=== PATIENT | male | born 1985 | race African-American/Black ===

== ENCOUNTER 2020-11-08 10:59 | Emergency (ER) | payer BC, SELFPAY ==
--- NOTE | ~2020-11-08 | CT_ITS ---
EXAMINATION: CT SOFT TISSUE NECK WITH CONTRAST CLINICAL INFORMATION: Left neck swelling. COMPARISON: None TECHNIQUE: Following the intravenous administration of 85 mL of Omnipaque 350 contrast, helical imaging was performed in the axial plane with generation of coronal and sagittal reformatted images. This CT examination was performed using dose optimization techniques as appropriate, variously including the following: *Automated exposure control *Adjustment of mA and/or kV according to patient size (this includes techniques or standardized protocols for targeted exams where dose is matched to indication/reason for exam; i.e. extremities or head) *Use of iterative reconstruction technique DLP: 1362 mGy-cm FINDINGS: There are soft tissue inflammatory changes in the left submandibular triangle and around the left parotid tail with thickening of the platysma muscle. Trace amount of fluid tracks around the left submandibular gland which demonstrates mildly increased heterogeneous enhancement as compared to the right side. No discrete intraglandular lesion, drainable fluid collection, or obstructing sialolith is visible. The floor of the mouth appears normal. The palatine tonsils are symmetrically prominent with narrowing of the oropharyngeal airway. The laryngeal structures are normal. Multiple small cysts versus nodules visible within the thyroid gland. The imaged mediastinum is normal. The visualized portions of the lungs are clear. Mild lower cervical spondylosis and reversal of the normal lordotic curvature. The carotid sheath vasculature opacifies normally. The parotid glands otherwise appear normal. No bulky cervical adenopathy identified. The imaged axillae are normal. No periapical lucencies seen in the dentition. Small retention cyst in the left maxillary sinus. The imaged orbits are normal. The visualized portions of the brain demonstrate no acute abnormality. CT/CT soft tissue neck w con IMPRESSION: Imaging findings suspected to represent acute left-sided submandibular gland sialoadenitis with mild surrounding soft tissue inflammatory changes. No bulky cervical adenopathy. No sialolith or drainable fluid collection. Symmetric prominence of the palatine tonsils resulting in narrowing of the oropharyngeal airway. Multinodular thyroid gland without enlargement.
[2020-11-08 11:40] VITALS: BP 146/96; PULSE 85; RESP 18; TEMP 36.6; O2SAT 100; BMI 37.2
--- NOTE | 2020-11-08 12:54 | ED_ITS ---
HPI - General Adult General Chief complaint: General Medical Stated complaint: lump on neck Time Seen by Provider: 11/08/20 12:33 Source: patient Mode of arrival: ambulatory Limitations: no limitations History of Present Illness HPI narrative: Patient presents to the ED for left submandiublar neck swelling that began that he noticed this morning. Patient denies neck mass being painful. Patient states no fever, chills, or weight loss. pateint states father from stomach cancer. patient maybe possible night sweats Related Data Previous Rx's Medication Instructions Recorded amoxicillin 875 mg-potassium 1 tab PO Q12H 10 Days #20 tab 11/08/20 clavulanate 125 mg tablet (Augmentin) Allergies Allergy/AdvReac Type Severity Reaction Status Date / Time No Known Allergies Allergy Verified 11/08/20 12:39 Review of Systems Review of Systems: Yes all other systems are reviewed and are negative Constitutional: Constitutional: Reports as per HPI and Reports no additional constitutional complaints Eyes: Eyes: Reports as per HPI and Reports no additional eye complaints ENT: Reports system reviewed and no additional complaints, except as documented and Reports as per HPI Comments: left submandibular neck swelling Cardiovascular: Cardiovascular: Reports as per HPI and Reports no additional cardiovascular complaints Respiratory: Respiratory: Reports as per HPI and Reports no additional respiratory complaints Genitourinary: Genitourinary: Reports no additional male genitourinary complaints and Reports as per HPI Musculoskeletal: Musculoskeletal: Reports no additional musculoskeletal complaints and Reports as per HPI Neurologic: Reports system reviewed and no additional complaints, except as documented and Reports as per HPI Psychiatric: Psychiatric: Reports no additional psychiatric complaints and Reports as per HPI [facility], [facility] Past Medical History Medical History (Updated 11/09/20 @ 00:01 by Raeann Mercado) No known health problems No known health problems Social History Social History Advance Directives: No Advance Directives Information Provided: No Physical Exam Vital Signs: Vital Signs: Last Vital Signs Temp 98.1 F 11/08/20 14:00 Pulse 76 11/08/20 14:00 Resp 18 11/08/20 14:00 BP 140/80 H 11/08/20 14:00 Pulse Ox 99 11/08/20 14:00 Body Mass Index 37.2 Const: General: cooperative, healthy appearing, comfortable, no acute distress, well developed, alert and awake Orientation/consciousness: patient oriented x3 HENMT: Other: Positive for left submandibular neck swelling with palpable mass that is non-tender on palpation. Oral cavity negative for dental abscess, tongue swelling, uvual swelling, uvula devation, tongue swelling, drooling, or tonsillar mass/swelling Head: Yes normal to inspection, Yes No palpable skull fracture present, Yes normocephalic and Yes atraumatic Eyes: General: appearance normal, both eyes and all related structures Neck: Neck: Yes normal visual inspection and Yes full ROM Chest: Chest palpation & inspection: normal inspection of the chest and normal palpation of entire chest wall Resp: Effort & Inspection: normal respiratory effort and able to speak in complete sentences Auscultation: clear to auscultation bilaterally Cardio: Jugular venous distension: no JVD Heart sounds: S1 normal heart sound present and S2 normal heart sound present GI: Inspection: Yes normal to inspection and No abdominal wall ecchymosis Palpation (GI): Soft to palpation, not firm, nontender and no guarding : General: No CVA tenderness and Yes no CVA tenderness Back/Spine/Pelvis: Back: no CVA tenderness, No CVA tenderness and No back tenderness Skin: General skin exam: no rashes or lesions noted and elasticity normal Neuro: General: patient oriented x3, gait normal and CN's II-XI intact bilaterally Cranial nerves: Yes CN's II-XII intact bilaterally Extrem: General: Yes normal to inspection and Yes full ROM Course Course Course Narrative: Patient had labs ordered and sent for CT scan of neck. 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 Patient educated on neck abscess or airway compromise and necessity to wait for results, but patient wanted to sign against medical advice. Patient explained risks of . Reevaluation #2: Patient was called and informed of CT scan results of neck. Patient informed he had siladenitis and nodules of thryoids. Patient informed to follow up with PCP. Augmentin sent to [facility]. Medical Decision Making Lab Data Result diagrams: 11/08/20 12:51 11/08/20 12:51 Labs: Lab Results 11/08/20 11/08/20 Range/Units 12:51 12:51 WBC 7.2 (4.8-10.8) X10*3/uL RBC 5.54 (4.60-5.80) X10*6/uL Hgb 15.2 (14.0-18.0) g/dl Hct 48.1 (42-52) % MCV 86.8 (80-98) fL MCH 27.4 (27.0-33.0) pg MCHC 31.6 (31.0-36.0) g/dl RDW 13.6 (11.0-16.0) % Plt Count 203 (160-400) X10*3/uL MPV 11.4 (9.4-12.4) fL Immature Gran % (Auto) 0.4 (0.0-0.4) % Neut % (Auto) 53.2 (45-73) % Lymph % (Auto) 35.3 (20-40) % Rice % (Auto) 9.3 (2-11) % Eos % (Auto) 1.5 (0-4) % Baso % (Auto) 0.3 (0-2) % Lymph # (Auto) 2.5 (1.2-4.9) X10*3/uL Rice # (Auto) 0.7 (0.1-1.2) X10*3/uL Eos # (Auto) 0.1 (0.0-0.4) X10*3/uL Baso # (Auto) 0.0 (0.0-0.2) X10*3/uL Abs Immat Gran (auto) 0.03 (0.00-0.03) X10*3/uL Absolute Neuts (auto) 3.8 (2.0-8.3) X10*3/uL Absolute Nucleated RBC 0.000 (0.0-0.012) X10*3/uL Nucleated RBC % (auto) 0.0 (0.0-0.2) /100WBC Sodium 140 (135-145) mmol/L Potassium 4.3 (3.3-5.1) mmol/L Chloride 104 (96-108) mmol/L Carbon Dioxide 29 (22-29) mmol/L Anion Gap 11 L (12-20) BUN 10 (9-16) mg/dL Creatinine 0.92 (0.5-1.4) mg/dL Estim Creat Clear Calc 154.1 Estimated GFR > 60 Random Glucose 100 (60-115) mg/dL Calcium 9.8 (8.4-10.2) mg/dL Total Bilirubin 0.3 (0.0-1.0) mg/dL AST 27 (5-37) U/L ALT 54 H (0-40) U/L Alkaline Phosphatase 94 (39-117) U/L Total Protein 8.0 (6.5-8.0) g/dL Albumin 4.5 (3.5-5.0) g/dL Discharge Plan Discharge Clinical Impression: Neck swelling Patient Disposition: Left Against Medical Advice Instructions: Lymphadenopathy (ED) Additional Instructions: Return to the ED for any drooling, chest pain, shortness of breath, fever, chills, can not tolerate oralsolids/liquids or any other conerning symptoms. Follow up wiht PCP. Prescriptions: New amoxicillin-pot clavulanate [Augmentin] 875-125 mg tablet 1 tab PO Q12H 10 Days Qty: 20 RF: 0 Stand Alone Forms: Against Medical Advice Interventions: ED Discharge Assessment Last Done: 11/08/20 16:00 Discharge Date/Time: 11/08/20 16:02 Print Language: Spanish
[2020-11-08 12:55] LABS: MANUAL DIFF FLAG NO
[2020-11-08 12:58] LABS: Basophils Percent Auto 0.3 % (0-2); Eosinophils Absolute Auto 0.1 X10*3/uL (0.0-0.4); Eosinophils Percent Auto 1.5 % (0-4); Hematocrit 48.1 % (42-52); Hemoglobin 15.2 g/dl (14.0-18.0); Imm Gran Abs Auto 0.03 X10*3/uL (0.00-0.03); Imm Gran Pct Auto 0.4 % (0.0-0.4); Lymphocytes Absolute Auto 2.5 X10*3/uL (1.2-4.9); Lymphocytes Percent Auto 35.3 % (20-40); Mean Corpuscular HGB Conc 31.6 g/dl (31.0-36.0); Mean Corpuscular Hemoglobin 27.4 pg (27.0-33.0); Mean Corpuscular Volume 86.8 fL (80-98); Mean Platelet Volume 11.4 fL (9.4-12.4); Monocytes Absolute Auto 0.7 X10*3/uL (0.1-1.2); Monocytes Percent Auto 9.3 % (2-11); Neutrophils Absolute Auto 3.8 X10*3/uL (2.0-8.3); Neutrophils Percent Auto 53.2 % (45-73); Platelet Count 203 X10*3/uL (160-400); Red Blood Count 5.54 X10*6/uL (4.60-5.80); Red Cell Distribution Width 13.6 % (11.0-16.0); White Blood Count 7.2 X10*3/uL (4.8-10.8)
[2020-11-08 13:40] LABS: Alanine Aminotransferase 54 U/L (0-40); Albumin Level 4.5 g/dL (3.5-5.0); Alkaline Phosphatase 94 U/L (39-117); Anion Gap 11 (12-20); Aspartate Amino Transferase 27 U/L (5-37); Bilirubin Total 0.3 mg/dL (0.0-1.0); Blood Urea Nitrogen 10 mg/dL (9-16); Calcium 9.8 mg/dL (8.4-10.2); Carbon Dioxide 29 mmol/L (22-29); Chloride 104 mmol/L (96-108); Creatinine Clr Calc Pharmacy 154.1; Estimated Glomerular Filt Rate > 60; Glucose Random 100 mg/dL (60-115); Potassium 4.3 mmol/L (3.3-5.1); Sodium 140 mmol/L (135-145)
[2020-11-08 14:00] VITALS: BP 140/80; PULSE 76; RESP 18; TEMP 36.7; O2SAT 99
[2020-11-08] MEDS: iohexoL 350 MG/ML 100 ML INFUS..BTL 75 ML IV (14:57)
--- NOTE | 2020-11-08 15:59 | PC.NURSE ---
PT UNABLE TO WAIT FOR CT RESULTS. VIOLETTE ESPINOZA PA IN TO SPEAK WITH PATIENT. PT REMAINS AWAKE,ALERT AND ORIENTED X 3. SPEAKING IN FULL CLEAR SENTENCES. MANAGING SECRETIONS. NO ACUTE DISTRESS NOTED. NEUROS INTACT. PLAN IS FOR PT TO BE DC'D AMA AND VIOLETTE WILL CALL WITH CT RESULTS. PT AGREEABLE TO PLAN. 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
== END 2020-11-08 16:02 | disposition left against medical advice (07) ==
PROVIDERS: Physician Assistant; Emergency Provider Internal Medicine
DX: K11.20 Sialoadenitis, unspecified (principal); E04.2 Nontoxic multinodular goiter; R22.1 Localized swelling, mass and lump, neck
CPT/HCPCS: 36415; 70491; 80053; 85025; 99284; Q9967

== ENCOUNTER 2023-04-20 13:28 | Emergency (ER) | payer BC, SELFPAY ==
--- NOTE | ~2023-04-20 | XR_ITS ---
EXAMINATION: XR LUMBOSACRAL SPINE CLINICAL INFORMATION: Low back pain status post heavy lifting. COMPARISON: None available. TECHNIQUE: Three views of the lumbosacral spine. FINDINGS: There is normal lumbar lordosis. The vertebral heights and alignment is normal. There is no visible acute fracture, dislocation or lytic process. There is mild ventral spondylosis throughout lumbar spine. The paravertebral soft tissues are normal. XR/XR lumbar spine 2-3V IMPRESSION: No acute fracture or dislocation. Mild ventral spondylosis lower lumbar spine.
[2023-04-20 13:47] VITALS: BP 141/95; PULSE 94; RESP 20; TEMP 37.1; O2SAT 98; BMI 36.7
--- NOTE | 2023-04-20 13:47 | ED_ITS ---
HPI - General Adult General Chief complaint: Back Pain/Injury Stated complaint: back pain Time Seen by Provider: 04/20/23 15:09 Source: patient and RN notes reviewed Mode of arrival: ambulatory Limitations: no limitations History of Present Illness HPI narrative: This is a 37-year-old male, with no known medical problems, presenting to the emergency department with complaints of low back pain since last night. 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 He did not have a specific movement where he immediately felt pain however throughout the evening last night he noticed increased back pain. He states that when he woke up this morning, his pain was severe. He states that the pain is in his low back, denies any radiating pain. Denies any fevers, chills, chest pain, shortness breast, abdominal pain, nausea, vomiting or diarrhea. No saddle anesthesia. No urinary or bowel retention or incontinence. He states that he has a history of back pain, was previously seen by Physical therapy several years ago. No IVDU. No other complaints or concerns at this time. MD complaint: Back pain Onset (ago): day(s) Location: back Radiation: non-radiation Related Data Previous Rx's Medication Instructions Recorded amoxicillin 875 mg-potassium 1 tab PO Q12H 10 days #20 tabs 11/08/20 clavulanate 125 mg tablet (Augmentin) acetaminophen 500 mg tablet 1,000 mg (2 x 500 mg) PO Q6H PRN 04/20/23 (Tylenol Extra Strength) pain #30 tabs ibuprofen 600 mg tablet 600 mg PO Q6H PRN pain #30 tabs 04/20/23 lidocaine 5 % topical patch 1 patch topical DAILY #30 ea 04/20/23 (Lidoderm) methocarbamol 750 mg tablet 1,500 mg (2 x 750 mg) PO Q8H 72 04/20/23 hours #18 tabs Allergies Allergy/AdvReac Type Severity Reaction Status Date / Time No Known Allergies Allergy Verified 04/20/23 13:47 Review of Systems Review of Systems: Yes all other systems are reviewed and are negative Constitutional: Constitutional: Reports as per [facility] Past Medical History Medical History (Updated 01/28/24 @ 00:01 by Background Dazeke) No known health problems No known health problems Social History Social History Smoked in Last 30 Days: No Use of substances other than those prescribed or required for medical reasons: No Advance Directives: No Advance Directives Information Provided: No Physical Exam ED Vital Signs: Vital Signs - 24 hr 04/20/23 13:47 04/20/23 16:41 Temperature 98.8 F 97.9 F Pulse Rate 94 60 Respiratory Rate 20 18 Blood Pressure 141/95 H 164/107 H Pulse Oximetry 98 98 Oxygen Delivery Method Room Air Room Air BMI result Body Mass Index 36.7 Const General: cooperative, comfortable and no acute distress Orientation/consciousness: patient oriented x3 Limitations: no limitations HENMT Head: Yes normal to inspection, Yes normocephalic and Yes atraumatic Ears: hearing grossly normal bilaterally General nose exam: Normal external nose present Face and sinus: Yes normal facial exam Mouth: Normal oral and palatal mucosa present, oropharynx normal and moist mucous membranes Throat: Yes posterior oropharynx normal Eyes General: appearance normal, both eyes and all related structures Eyelids: Yes eyelids normal Conjunctivae: conjunctivae normal Sclerae: sclerae normal Pupils: Equal, round and reactive pupils present EOM: EOMs intact bilaterally Neck Neck: Yes normal visual inspection, Yes full ROM and Yes no lymphadenopathy Lymphatic: no lymphadenopathy noted Chest Chest palpation & inspection: normal inspection of the chest Resp Effort & Inspection: normal respiratory effort and able to speak in complete sentences Auscultation: clear to auscultation bilaterally, no crackles, no rales, no rhonchi and no wheezes Cardio Rate: regular rate Rhythm: regular rhythm Heart sounds: S1 normal heart sound present and S2 normal heart sound present GI Inspection: Yes normal to inspection Back/Spine/Pelvis Other: TTP overlying lumbar parapinous muscles with spasm, DTR 2+, strength 5/5 in LE. 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 pain exacerbated w/ positional changes. does not want to sit down d/t pain. denies OTC meds for pain. using heating pad at home w/o relief. Denies fever, chills, numbness/tingling/weakness of LEs, saddle anesthesia, bowel or bladder incontinence or retention. Denies IVDU. PE: no midline spinous tenderness, no step off deformity. TTP of lumbar paraspinal muscles. xrs ordered Full HPI, ROS and PE to be performed by the primary ED provider. Medications Administered Discontinued Medications Generic Name Dose Route Start Last Admin Trade Name Freq PRN Reason Stop Dose Admin Ketorolac Tromethamine 30 mg 04/20/23 16:21 04/20/23 16:42 Ketorolac Tromethamine 30 Mg/Ml Vial IM 04/20/23 16:22 30 mg ONCE ONE Administration Medical Decision Making Medical Decision Making MDM Narrative: 37-year-old male, with no known medical problems, presenting to the emergency department with complaints of low back pain since last night. This patient presents with back pain most consistent with lumbar strain. Differential diagnoses includes lumbago versus musculoskeletal spasm / strain versus sciatica. No back pain red flags on history or physical. Presentation not consistent with malignancy (lack of history of malignancy, lack of B symptoms), fracture (no trauma, no bony tenderness to palpation), cauda equina syndrome (no bowel or urinary incontinence/retention, no saddle anesthesia, no distal weakness), pyelonephritis (afebrile, no CVAT, no urinary symptoms). Xrays orderd in triage revealing no acute bony abnormality. Sxs likely MSK/spasm related. D/C on muscle relaxants, given return precautions. Pt stable for d/c Differential Diagnosis Differential Diagnoses: The differential diagnosis associated with the presentation includes see above Radiology Impression Discussion of test interpretation with radiology: I have reviewed the radiologist's reading. Radiologist Impression: EXAMINATION: XR LUMBOSACRAL SPINE CLINICAL INFORMATION: Low back pain status post heavy lifting. COMPARISON: None available. TECHNIQUE: Three views of the lumbosacral spine. FINDINGS: There is normal lumbar lordosis. The vertebral heights and alignment is normal. There is no visible acute fracture, dislocation or lytic process. There is mild ventral spondylosis throughout lumbar spine. The paravertebral soft tissues are normal. XR/XR lumbar spine 2-3V IMPRESSION: No acute fracture or dislocation. Mild ventral spondylosis lower lumbar spine. Dictated By: Sj Awan MD Discharge Plan Discharge Clinical Impression: Back pain Patient Disposition: Home, Self-Care Instructions: Back Pain (ED) Additional Instructions: You were seen in the emergency department for back pain. You likely have back pain due to muscle spasms. Please take prescribed medication as directed. Gentle stretching, massage, lidocaine patches can also help. You can apply heat or ice to the area. Do not apply heat or ice directly to the lidocaine patches. Take ibuprofen and/or Tylenol as needed for pain. Methocarbamol can help with muscle spasms in your back. Please be advised that this can cause drowsiness, do not drink alcohol or drive while taking this medication. Any new or worsening symptoms occur including but not limited to worsening pain, numbness and tingling into your groin, loss of bowel or bladder control, please return for re-evaluation. Prescriptions: New ibuprofen 600 mg tablet 600 mg PO Q6H PRN (Reason: pain) Qty: 30 0RF acetaminophen [Tylenol Extra Strength] 500 mg tablet 1,000 mg PO Q6H PRN (Reason: pain) Qty: 30 0RF methocarbamol 750 mg tablet 1,500 mg PO Q8H 3 Days Qty: 18 0RF lidocaine [Lidoderm] 5 % adhesive patch,medicated 1 patch topical DAILY Qty: 30 0RF Rx Instructions: leave on most painful area for up to 12 hrs No Action amoxicillin-pot clavulanate [Augmentin] 875-125 mg tablet 1 tab PO Q12H 10 Days Qty: 20 0RF Stand Alone Forms: Work/School Release Interventions: ED Discharge Assessment Last Done: 04/20/23 16:54 Discharge Date/Time: 04/20/23 16:45
[2023-04-20 16:41] VITALS: BP 164/107; PULSE 60; RESP 18; TEMP 36.6; O2SAT 98
[2023-04-20] MEDS: Ketorolac Tromethamine 30 MG/ML VIAL IM (16:42)
== END 2023-04-20 16:45 | disposition home or self-care (01) ==
PROVIDERS: Emergency Provider Emergency Medicine
DX: Z04.2 Encounter for examination and observation following work accident (principal); M54.50 Low back pain, unspecified
CPT/HCPCS: 72100; 96372; 99284; J1885

== ENCOUNTER 2024-04-08 07:51 | Inpatient (IN) | payer BC, SELFPAY ==
--- NOTE | ~2024-04-08 | US_ITS ---
EXAMINATION: US TRIPLEX LOWER EXTREMITY, RIGHT CLINICAL INFORMATION: Edema, right lower extremity. COMPARISON: None available. TECHNIQUE: Color-flow triplex imaging with spectral analysis and compression Doppler were performed on the right lower extremity. FINDINGS: Respiratory variation, normal compression and augmented flow are noted throughout the right lower extremity. The visualized common femoral vein, superficial femoral vein, profunda femoral vein, popliteal vein and midcalf peroneal and posterior tibial venous segments show no evidence of deep venous thrombosis. There is no Caruso's cyst. Number 3 cm prominent nodule, right inguinal region. Edema in the right upper thyroid without drainable fluid collection. US/US venous duplex LE RT IMPRESSION: No acute deep venous thrombosis involving the right lower extremity. Negative exam. 3 cm prominent lymph nodes, right inguinal.. Electronically signed by: James Hoover MD 04/08/2024 11:11 AM [facility]
[2024-04-08 07:53] VITALS: BP 173/106; PULSE 106; RESP 18; TEMP 37.2; O2SAT 98; BMI 30.2
--- NOTE | 2024-04-08 09:11 | ED.GENADULT ---
HPI - General Adult General Chief complaint: Extremity Problem Stated complaint: R Leg Pain No Injury Time Seen by Provider: 04/08/24 09:10 Source: patient Mode of arrival: ambulatory Limitations: no limitations History of Present Illness ED Provider: Nazia Andrews PA-C HPI narrative: 38 y/o male with no significant PMH presents to the ED with right leg pain, swelling, and redness. States he initially noted his right leg to be swollen, red, and inflamed 03/25/24 and he was seen at the [facility] ED, prescribed PO Keflex which he finished. However, he states the pain and swelling have worsened significantly and he is now having difficulty bearing weight on the affected leg. States pain/swelling began distally around the ankle and moved proximally to the entire lower extremity up to the groin area. Endorses fever/chills and nausea x1 day. Denies recent travel or sick contacts. Denies vomiting, chest pain, SOB, abdominal pain, diarrhea/constipation. Pain Consistency: constant Relieving factors: immobilization Exacerbating factors: movement Associated symptoms: denies other symptoms Related Data Previous Rx's ?Medication ?Instructions ?Recorded acetaminophen 500 mg tablet 1,000 mg (2 x 500 mg) PO Q6H PRN 04/20/23 (Tylenol Extra Strength) pain #30 tabs ibuprofen 600 mg tablet 600 mg PO Q6H PRN pain #30 tabs 04/20/23 Allergies Allergy/AdvReac Type Severity Reaction Status Date / Time No Known Allergies Allergy Verified 04/08/24 07:56 Review of Systems Constitutional: Constitutional: Reports no additional constitutional complaints, Reports chills, Reports fever(s) and Denies night sweats Eyes: Eyes: Reports no additional eye complaints, Denies blurry vision, Denies change in vision, Denies diplopia, Denies eye discharge, Denies loss of vision and Denies eye pain ENT: Denies dizziness Cardiovascular: Cardiovascular: Reports no additional cardiovascular complaints, Denies chest pain, Denies lightheadedness, Denies Loss of Consciousness and Denies dyspnea Respiratory: Respiratory: Reports no additional respiratory complaints and Denies dyspnea Gastrointestinal: Gastrointestinal: Reports no additional gastrointestinal complaints, Denies abdominal pain, Denies melena, Denies hematochezia, Denies change in bowel habits, Denies change in stool character, Reports nausea and Denies vomiting Genitourinary: Genitourinary: Reports no additional male genitourinary complaints, Denies hematuria, Denies oliguria, Denies difficulty urinating, Denies dysuria, Denies urinary frequency, Denies urinary hesitancy, Denies urinary incontinence and Denies urinary urgency Musculoskeletal: Musculoskeletal: Reports no additional musculoskeletal complaints, Reports abnormal gait (Difficulty ambulating due to pain in right lower leg), Denies numbness and Denies tingling Comments: right upper and lower leg swelling, pain, erythema Neurologic: Reports abnormal gait (Difficulty ambulating due to pain in right lower leg), Denies dizziness, Denies loss of vision, Denies numbness and Denies tingling Psychiatric: Psychiatric: Reports no additional psychiatric complaints Endocrine: Endocrine: Reports no additional endocrine complaints Hematologic/Lymphatic: Hematologic/Lymphatic: Reports no additional hematologic/lymphatic complaints Allergic/Immunologic: Allergic/Immunologic: Reports no additional allergic/immunologic complaints [facility] Past Medical History Attestation statement: The following information was validated with the patient. Source: old records reviewed and nursing notes reviewed Medical History No known health problems No known health problems Social History Social History Advance Directives: No Advance Directives Information Provided: Yes Do you have a plan to hurt others: No Plan Physical Exam ED Vital Signs: Vital Signs - 24 hr 04/08/24 07:53 Temperature 99.0 F Pulse Rate 106 H Respiratory Rate 18 Blood Pressure 173/106 H Pulse Oximetry 98 Oxygen Delivery Method Room Air BMI result Body Mass Index 30.2 Const General: cooperative, no acute distress, alert and awake Nutritional Appearance: well nourished Orientation/consciousness: patient oriented x3 Limitations: no limitations [facility] Head: Yes normal to inspection and Yes atraumatic Ears: hearing grossly normal bilaterally and external ears normal General nose exam: Normal external nose present, no nasal discharge noted and no epistaxis Face and sinus: Yes normal facial exam, No abrasion and No laceration Mouth: Normal oral and palatal mucosa present, no drooling and no muffled voice Eyes General: appearance normal, both eyes and all related structures Periorbital: periorbital findings normal Eyelids: Yes eyelids normal Conjunctivae: conjunctivae normal Pupils: Equal, round and reactive pupils present EOM: EOMs intact bilaterally Neck Neck: Yes normal visual inspection, Yes full ROM and Yes no lymphadenopathy Chest Chest palpation & inspection: normal inspection of the chest Resp Effort & Inspection: normal respiratory effort and able to speak in complete sentences GI Inspection: Yes normal to inspection Neuro General: patient oriented x3 and moves all extremities Cranial nerves: Yes Equal, round and reactive pupils present Cognition (Neuro): normal cognition Extrem Other: tenderness to palpation of the entire right upper and lower leg along the medial aspect firmness present in the right lower leg medially General: Yes full ROM and Yes capillary refill normal Right lower extremity: hip/thigh (Palpable cord on medial R thigh) and lower leg Details: erythema, tenderness, localized swelling, palpable cord and warmth Left lower extremity: normal to inspection Psych Appearance: grossly normal Mental Status: mental status grossly normal Affect: normal affect Attitude: cooperative Thought process: Normal thought process present Thought content: Normal thought content present Insight: Good insight present (Psych) Medications Administered Generic Name Dose Route Start Last Admin Trade Name Freq PRN Reason Stop Dose Admin Enoxaparin Sodium 40 mg 04/08/24 14:00 04/08/24 14:14 Enoxaparin Sodium 40 Mg/0.4 Ml Syringe SUBCUT 40 mg Q24H АННА Administration Doxycycline Hyclate 100 mg/ 250 mls @ 166.67 mls/hr 04/08/24 13:00 04/08/24 14:11 Sodium Chloride IV 166.67 mls/hr Q12H АННА Administration Discontinued Medications Generic Name Dose Route Start Last Admin Trade Name Freq PRN Reason Stop Dose Admin Ceftriaxone Sodium 1 gm 04/08/24 09:51 04/08/24 10:17 Ceftriaxone Sodium 1 Gm Vial IVPUSH 04/08/24 09:52 1 gm ONCE ONE Administration Morphine Sulfate 4 mg 04/08/24 09:51 04/08/24 10:18 Morphine Sulfate 4 Mg/Ml Cartridge IVPUSH 04/08/24 09:52 4 mg ONCE ONE Administration Protocol Ondansetron HCl 4 mg 04/08/24 09:51 04/08/24 10:17 Ondansetron Hcl 4 Mg/2 Ml Vial IVPUSH 04/08/24 09:52 4 mg ONCE ONE Administration Medical Decision Making Medical Decision Making MDM Narrative: Patient is a 38 year old assigned male at with no reported medical history presenting to the emergency department today with right lower extremity pain, swelling, and erythema. Patient's physical exam was as noted in the physical exam portion of this note. Patient's blood work showed a WBC count of 18.9 and ESR of 9.04. Patient's urine showed no acute process. Patient's right lower extremity US showed no acute DVT but did show a 3cm right inguinal lymph node. I explained my physical exam findings as well as all test results to the patient. I answered all questions asked by the patient. Patient's clinical presentation is not consistent with sepsis (@1205). Patient was given IV ceftriaxone. I spoke to the hospitalist team who agreed to admission. Patient verbalized agreement and understanding with this treatment plan and admisison. Differential Diagnosis Differential Diagnoses: The differential diagnosis associated with the presentation includes Cellulitis Lymphadenopathy Admission/Observation Consideration of admission/observation: Escalation of care including admission/observation considered Patient admitted as noted in the MDM Rationale portion of this note. Consult Healthcare Provider Management of the patient was discussed with: Hospitalist (agreed to admission as noted in the MDM Rationale portion of this note.) Lab Data [facility] Lab Attestation statement: I reviewed the patient's lab results. My interpretation of these results are in the MDM Rationale portion of this note. 04/08/24 09:07 04/08/24 09:07 Labs: Lab Results 04/08/24 04/08/24 Range/Units 09:07 10:13 WBC 18.9 H (4.8-10.8) X10*3/uL RBC 5.32 (4.60-5.80) X10*6/uL Hgb 14.6 (14.0-18.0) g/dl Hct 43.5 (42.0-52.0) % MCV 81.8 (80.0-98.0) fL MCH 27.4 (27.0-33.0) pg MCHC 33.6 (31.0-36.0) g/dl RDW 13.2 (11.0-16.0) % Plt Count 245 (160-400) X10*3/uL MPV 10.2 (9.4-12.4) fL Immature Gran % (Auto) Cancelled Neut % (Auto) Cancelled Lymph % (Auto) Cancelled Door % (Auto) Cancelled Eos % (Auto) Cancelled Baso % (Auto) Cancelled Lymph # (Auto) Cancelled Door # (Auto) Cancelled Eos # (Auto) Cancelled Baso # (Auto) Cancelled Abs Immat Gran (auto) Cancelled Absolute Neuts (auto) Cancelled Absolute Nucleated RBC 0.000 (0.0-0.012) X10*3/uL Nucleated RBC % (auto) 0.0 (0.0-0.2) /100WBC Neutrophils % (Manual) 69 (45-73) % Band Neutrophils % 1 L (3-5) % Lymphocytes % (Manual) 20 (20-40) % Monocytes % (Manual) 9 (2-11) % Eosinophils % (Manual) 1 (0-4) % Abs Neuts (Manual) 13.2 H (2.0-8.3) X10*3/uL Lymphocytes # (Manual) 3.8 (1.2-4.9) X10*3/uL Monocytes # (Manual) 1.7 H (0.1-1.2) X10*3/uL Eosinophils # (Manual) 0.2 (0.0-0.4) X10*3/uL Platelet Estimate NORMAL (NORMAL) Plt Morphology Comment NORMAL RBC Morphology NORMAL ESR 14 (0-15) MM/HR Sodium 138 (135-145) mmol/L Potassium 3.7 (3.3-5.1) mmol/L Chloride 107 (96-108) mmol/L Carbon Dioxide 25 (22-29) mmol/L Anion Gap 10 L (12-20) BUN 11 (9-16) mg/dL Creatinine 0.88 (0.5-1.4) mg/dL Estim Creat Clear Calc 145.1 Estimated GFR > 60 Random Glucose 96 (60-115) mg/dL Lactic Acid 0.7 (0.5-2.0) mmol/L Calcium 9.1 D (8.4-10.2) mg/dL Total Bilirubin 0.5 (0.0-1.0) mg/dL AST 24 (5-37) U/L ALT 33 (0-40) U/L Alkaline Phosphatase 95 (39-117) U/L C-Reactive Protein 9.04 H (< or = 0.50) mg/dL Total Protein 7.9 (6.5-8.0) g/dL Albumin 4.3 (3.5-5.0) g/dL Independent Interpretation I performed an independent interpretation of an: Ultrasound Interpretation: My interpretation is in agreement with the radiologist's impression of this imaging study. EXAMINATION: US TRIPLEX LOWER EXTREMITY, RIGHT CLINICAL INFORMATION: Edema, right lower extremity. COMPARISON: None available. TECHNIQUE: Color-flow triplex imaging with spectral analysis and compression Doppler were performed on the right lower extremity. FINDINGS: Respiratory variation, normal compression and augmented flow are noted throughout the right lower extremity. The visualized common femoral vein, superficial femoral vein, profunda femoral vein, popliteal vein and midcalf peroneal and posterior tibial venous segments show no evidence of deep venous thrombosis. There is no Caruso's cyst. Number 3 cm prominent nodule, right inguinal region. Edema in the right upper thyroid without drainable fluid collection. US/US venous duplex LE RT IMPRESSION: No acute deep venous thrombosis involving the right lower extremity. Negative exam. 3 cm prominent lymph nodes, right inguinal.. Electronically signed by: James Hoover MD 04/08/2024 11:11 AM [facility] [place] Dictated By: James Gil MD Signed By: Electronically signed by James Lakhani MD 04/08/24 1111 Radiology Impression Discussion of test interpretation with radiology: I have reviewed the radiologist's reading. Critical Care Time Critical Care Time Critical Care Time: Yes Total Critical Care Time: 34 Attestation: I spent 34 minutes of Critical Care Time with this patient. This does not include time spent on separately reported billable procedures. Discharge Plan Discharge Clinical Impression: Cellulitis of right lower leg Patient Disposition: Admitted As Inpatient
[2024-04-08 09:16] LABS: Hematocrit 43.5 % (42.0-52.0); Hemoglobin 14.6 g/dl (14.0-18.0); Mean Corpuscular HGB Conc 33.6 g/dl (31.0-36.0); Mean Corpuscular Hemoglobin 27.4 pg (27.0-33.0); Mean Corpuscular Volume 81.8 fL (80.0-98.0); Mean Platelet Volume 10.2 fL (9.4-12.4); Platelet Count 245 X10*3/uL (160-400); Red Blood Count 5.32 X10*6/uL (4.60-5.80); Red Cell Distribution Width 13.2 % (11.0-16.0)
[2024-04-08 09:17] LABS: WBC ABN SCTR FOR CBC 1
[2024-04-08 09:32] LABS: Alanine Aminotransferase 33 U/L (0-40); Albumin Level 4.3 g/dL (3.5-5.0); Alkaline Phosphatase 95 U/L (39-117); Anion Gap 10 (12-20); Aspartate Amino Transferase 24 U/L (5-37); Bilirubin Total 0.5 mg/dL (0.0-1.0); Blood Urea Nitrogen 11 mg/dL (9-16); Calcium 9.1 mg/dL (8.4-10.2); Carbon Dioxide 25 mmol/L (22-29); Chloride 107 mmol/L (96-108); Creatinine Clr Calc Pharmacy 145.1; Estimated Glomerular Filt Rate > 60; Glucose Random 96 mg/dL (60-115); Potassium 3.7 mmol/L (3.3-5.1); Sodium 138 mmol/L (135-145); Total Protein 7.9 g/dL (6.5-8.0)
[2024-04-08 09:37] LABS: Band Neutrophils Percent 1 % (3-5); Eosinophils Percent Manual 1 % (0-4); Lymphocytes Percent Manual 20 % (20-40); Monocytes Percent Manual 9 % (2-11); Neutrophils Percent Manual 69 % (45-73)
[2024-04-08 09:40] LABS: Platelet Estimate NORMAL (NORMAL); Platelet Morphology Comment NORMAL; RBC Morphology NORMAL
[2024-04-08 10:02] LABS: C Reactive Protein 9.04 mg/dL (< or = 0.50)
[2024-04-08] MEDS: cefTRIAXone sodium 1 GM VIAL IVPUSH (10:17)
[2024-04-08] MEDS: ondansetron HCL 4 MG/2 ML VIAL IVPUSH (10:17)
[2024-04-08] MEDS: Morphine Sulfate 4 MG/ML CARTRIDGE IVPUSH (10:18)
[2024-04-08 10:40] LABS: Lactic Acid 0.7 mmol/L (0.5-2.0)
[2024-04-08 10:42] LABS: Erythrocyte Sedimentation Rate 14 MM/HR (0-15)
[2024-04-08 12:04] LABS: Eosinophils Absolute Manual 0.2 X10*3/uL (0.0-0.4); Lymphocytes Absolute Manual 3.8 X10*3/uL (1.2-4.9); Monocytes Absolute Manual 1.7 X10*3/uL (0.1-1.2); Neutrophils Absolute Manual 13.2 X10*3/uL (2.0-8.3); White Blood Count 18.9 X10*3/uL (4.8-10.8)
--- NOTE | 2024-04-08 12:08 | P.HPHOSP_ITS ---
History of Present Illness Date of Service: 04/08/24 Attending physician on admission: Bobby Walker Chief Complaint: Right leg pain Pt is a 38-year-old male without any known significant PMH not on home meds and currently without PCP who presents to the ED for evaluation of worsening right lower extremity swelling, redness, and pain. Pt reports symptoms began a few weeks ago on 03/25/2024. The day prior pt reports he was outside doing leaves. The next day pt began experiencing right lower leg pain and swelling. Noticed a line on his inner right thigh that was swollen and red. Denies any known trauma or wound to the area. Initially thought it was a spider bite or he had strained a muscle. No fever or chills at that time. Initially presented to [facility] ED where he was given a course of cephalexin which he took to completion. While on the antibiotics the pain and swelling decreased, though never fully went away. A few days after finishing the antibiotics pain, swelling, erythema returned and worsened, now migrating to right calf. Pt also has been experiencing difficulty ambulating secondary to pain, as well as subjective fever and chills at home, and some nausea this morning. No weeping or drainage from wound. Denies history of IVDU. Pt at home took ibuprofen with some, though minimal, relief. Denies any vomiting or abdominal pain. No difficulty breathing, SOB, or new cough. Denies chest pain/pressure, palpitations. In the ED pt was tachycardic up to 106 and hypertensive up to 173/106. Labs were significant for leukocytosis of 18.9, and CRP 9.04 but ESR WNL. Stable H&H. No significant electrolyte abnormalities. Renal function baseline. Hepatic function WNL. Lactic acid WNL. Left lower extremity venous duplex negative for DVT but did show 3 cm right inguinal lymph nodes. Pt was treated with ondansetron, morphine, and ceftriaxone. Pt will be admitted to the hospital for treatment and further evaluation of right lower leg cellulitis with sepsis that failed outpatient therapy. Review of Systems 2 Review of Systems: Negative except for that which is stated in the [facility] Medical History No known health problems No known health problems Social History Advance Directives: No Advance Directives Information Provided: Yes Do you have a plan to hurt others: No Plan Meds Allergies Allergy/AdvReac Type Severity Reaction Status Date / Time No Known Allergies Allergy Verified 04/08/24 07:56 Physical Exam 2 Vital Signs and Narrative: Vital Signs: Last Vital Signs Temp 99.0 F 04/08/24 07:53 Pulse 106 H 04/08/24 07:53 Resp 18 04/08/24 07:53 BP 173/106 H 04/08/24 07:53 Pulse Ox 98 04/08/24 07:53 O2 Del Method Room Air 04/08/24 07:53 BMI result Body Mass Index 30.2 General: AOx3, no acute distress Resp: CTA bilaterally CVS: S1, S2, regular rhythm, tachycardic. No murmurs, rubs, or gallops. GI: +BS, NT, no distention Skin: Warm, dry Neuro: Cranial nerves II-XII grossly intact bilaterally. Motor grossly intact bilaterally Extremities: Inner right thigh with swelling and plapable cord. Right calf with erythema, swelling, and tenderness. Psych: Appropriate affect Results Labs 04/08/24 09:07 04/08/24 09:07 Labs: Laboratory Results - last 24 hr 04/08/24 04/08/24 09:07 10:13 MCV 81.8 MCH 27.4 MCHC 33.6 RDW 13.2 Plt Count 245 MPV 10.2 Immature Gran % (Auto) Cancelled Neut % (Auto) Cancelled Lymph % (Auto) Cancelled [place] % (Auto) Cancelled Eos % (Auto) Cancelled Baso % (Auto) Cancelled Lymph # (Auto) Cancelled [place] # (Auto) Cancelled Eos # (Auto) Cancelled Baso # (Auto) Cancelled Abs Immat Gran (auto) Cancelled Absolute Neuts (auto) Cancelled Absolute Nucleated RBC 0.000 Nucleated RBC % (auto) 0.0 Neutrophils % (Manual) 69 Band Neutrophils % 1 L Lymphocytes % (Manual) 20 Monocytes % (Manual) 9 Eosinophils % (Manual) 1 Abs Neuts (Manual) 13.2 H Lymphocytes # (Manual) 3.8 Monocytes # (Manual) 1.7 H Eosinophils # (Manual) 0.2 Platelet Estimate NORMAL Plt Morphology Comment NORMAL RBC Morphology NORMAL ESR 14 Anion Gap 10 L Estim Creat Clear Calc 145.1 Estimated GFR > 60 Random Glucose 96 Lactic Acid 0.7 Calcium 9.1 D Total Bilirubin 0.5 AST 24 ALT 33 Alkaline Phosphatase 95 C-Reactive Protein 9.04 H Total Protein 7.9 Albumin 4.3 Imaging Radiologist's Impressions: Impressions Venous Duplex 04/08/24 10:36 IMPRESSION: No acute deep venous thrombosis involving the right lower extremity. Negative exam. 3 cm prominent lymph nodes, right inguinal.. Electronically signed by: James Hoover MD 04/08/2024 11:11 AM [facility] and Plan (1) Cellulitis of right lower leg: Status: Acute Plan Pt is a 38-year-old male without any known significant PMH not on home meds and currently without PCP who presents to the ED for evaluation of worsening right lower extremity swelling, redness, and pain. Pt will be admitted to the hospital for treatment and further evaluation of right lower leg cellulitis with sepsis that failed outpatient therapy. Right lower extremity cellulitis Symptoms since 03/25/2024 Completed course of Keflex though symptoms returned and worsened a few days after completion Meets sepsis criteria: Tachycardia and leukocytosis; lactic acid WNL Pt is started on broad-spectrum antibiotics in the ED Will treat with ceftriaxone and doxycycline, started 04/08/2024 Analgesics for pain management Follow up blood cultures Superficial thrombophlebitis of right thigh Pt with palpable cord of inner thigh In the setting of above Treat as above Hypertension Pt without diagnosis of HTN, not on home meds Has not followed with PCP in some time Possibly secondary to pain Will monitor for now Full Code Attending:?Dr. Walker DVT Prophylaxis: Lovenox Given that pt failed outpatient therapy, he will require a hospitalization of at least two nights for treatment of?right lower extremity cellulitis with sepsis requiring IV antibiotics. Quality Stroke Does the patient have a stroke diagnosis?: No VTE Prior VTE?: No VTE Risk Level:: Medical - moderate - high VTE Device Contraindication: Treatment Not Indicated VTE Drug Contraindication: N/A - Med Ordered
--- NOTE | 2024-04-08 13:03 | PHA.MEDREC ---
Pharmacy Consult ? Medication Reconciliation Pharmacy has completed the medication reconciliation. Spoke woth pt to confirm medications.
[2024-04-08] MEDS: Doxycycline Hyclate 100 MG in 0.9 % Sodium Chloride 250 ML 166.67 MG IV (14:11)
[2024-04-08] MEDS: Enoxaparin Sodium 40 MG/0.4 ML SYRINGE SUBCUT (14:14)
[2024-04-08 15:27] VITALS: BMI 30.2
[2024-04-08] MEDS: 0.9 % Sodium Chloride Flush 3 ML SYRINGE IVFLUSH (17:21)
--- NOTE | 2024-04-08 20:54 | PC.NURSE ---
Summary of care: 38 y.o M, a&o x4 independent with ADL's at baseline; presents for evaluation of worsening right lower extremity swelling, redness, and pain. Pt symptoms began 03/25/2024. pt sts he saw a line on his inner right thigh that was swollen and red. Pt was seen at [facility] and was prescribed a course of keflex. Symptoms lessened and but never fully resolved. pt sts a few says after completing ABX redness and swelling returned with spread to the right calf. Pt has been experiencing difficulty ambulating d/t pain, however pt denies pain at rest. Pt reports fever and chills, however was afebrile on arrival. No active drainage from from wound at this time. Pt has 20g IV place in his left wrist- labs were obtained and ABX were initiated. Labs were significant for leukocytosis of 18.9, and CRP 9.04 but ESR WNL. Lactic acid WNL. Left lower extremity venous duplex negative for DVT however there a 3 cm right inguinal lymph nodes was seen. Pt medicated with morphine, zofran, ceftriaxone as well as doxycyline. Pt to be admitted for further eval and tx of right lower leg cellulitis with sepsis that failed outpatient therapy.
[2024-04-08 20:57] VITALS: BP 169/102; PULSE 78; RESP 16; TEMP 36.6; O2SAT 98
[2024-04-08] MEDS: oxyCODONE HCl Immed Release 5 MG TABLET PO (21:54)
[2024-04-09] MEDS: 0.9 % Sodium Chloride Flush 3 ML SYRINGE IVFLUSH ×4 (00:12→23:28)
[2024-04-09] MEDS: Doxycycline Hyclate 100 MG in 0.9 % Sodium Chloride 250 ML 166.67 MG IV ×3 (00:13→23:27)
[2024-04-09 00:30] VITALS: BP 151/96; PULSE 71; RESP 16; TEMP 37.1; O2SAT 99
[2024-04-09 06:14] VITALS: BP 148/90; PULSE 78; RESP 16; TEMP 36.4; O2SAT 98
[2024-04-09 06:38] LABS: Anion Gap 11 (12-20); Blood Urea Nitrogen 8 mg/dL (9-16); Calcium 9.2 mg/dL (8.4-10.2); Carbon Dioxide 24 mmol/L (22-29); Chloride 106 mmol/L (96-108); Creatinine Clr Calc Pharmacy 157.6; Estimated Glomerular Filt Rate > 60; Glucose Random 102 mg/dL (60-115); Potassium 3.7 mmol/L (3.3-5.1); Sodium 137 mmol/L (135-145)
[2024-04-09 07:04] LABS: Hematocrit 44.3 % (42.0-52.0); Hemoglobin 14.4 g/dl (14.0-18.0); Mean Corpuscular HGB Conc 32.5 g/dl (31.0-36.0); Mean Corpuscular Hemoglobin 27.2 pg (27.0-33.0); Mean Corpuscular Volume 83.6 fL (80.0-98.0); Platelet Count 224 X10*3/uL (160-400); White Blood Count 15.2 X10*3/uL (4.8-10.8)
--- NOTE | 2024-04-09 08:47 | PC.NURSE ---
patient a&ox3, rr equal/non labored, lungs clear, rle hot to touch, pt currently denying pain/discomfort-states while at rest he has no pain only when he ambulates, pt offered po medications for pain as he was going to ambulate to the bathroom- pt refused at this time. call lugo within reach, plan of care ongoing
[2024-04-09] MEDS: cefTRIAXone sodium 1 GM VIAL IVPUSH (09:19)
--- NOTE | 2024-04-09 09:39 | MHC.CM.PN ---
Patient lives with his and is functionally independent. Patient has no PCP(PCP brochure to be provided);home self care is the tentative plan and Patient's goal. CM has initiated and will follow for dc planning.
[2024-04-09] MEDS: Ketorolac Tromethamine 30 MG/ML VIAL IVPUSH (09:43)
[2024-04-09] MEDS: Enoxaparin Sodium 40 MG/0.4 ML SYRINGE SUBCUT (12:40)
--- NOTE | 2024-04-09 13:25 | PC.NURSE ---
pts iv site to lt arm infiltrated, a line was started to rt forarm.
[2024-04-09 13:49] VITALS: BP 145/97; PULSE 63; RESP 16; TEMP 36.6; O2SAT 97
[2024-04-09 13:55] VITALS: BMI 29.2
[2024-04-09 15:19] VITALS: PULSE 60; RESP 18; TEMP 36.6; O2SAT 100
--- NOTE | 2024-04-09 16:25 | HO.PM.IMPN ---
Subjective Subjective Date of Service: 04/09/24 Interval History: seen and examined this morning follow up for RLE cellulitis still with erythema and pain to right lower leg, but swelling has improved no fever or chills Review of Systems Review of Systems: Yes all other systems are reviewed and are negative Constitutional Constitutional: Denies chills and Denies fever(s) Cardiovascular Cardiovascular: Denies chest pain, Denies palpitations and Denies dyspnea Respiratory Respiratory: Denies cough and Denies dyspnea Gastrointestinal Gastrointestinal: Denies abdominal pain, Denies nausea and Denies vomiting Endocrine Endocrine: Denies palpitations Physical Exam Vital Signs: Vital Signs: Last Vital Signs Temp 97.9 F 04/09/24 15:19 Pulse 60 04/09/24 15:19 Resp 18 04/09/24 15:19 BP 145/97 H 04/09/24 13:49 Pulse Ox 100 04/09/24 15:19 O2 Del Method Room Air 04/09/24 15:19 BMI result Body Mass Index 29.2 Const: General: alert, awake and Physically active Nutritional Appearance: average body habitus Orientation/consciousness: patient oriented x3 Resp: Effort & Inspection: normal respiratory effort, able to speak in complete sentences, no respiratory distress and no use of accessory muscles Cardio: Rate: regular rate GI: Inspection: No distended Palpation (GI): Soft to palpation Skin: Other: right lower extremity warm, erythematous, soft; no open woudns b. Neuro: General: patient oriented x3 Objective Data Active Medications Acetaminophen (Acetaminophen 325 Mg Tablet) 650 mg PO Q6H PRN PRN Reason: Pain, Mild 1-3,fever,headache Calcium Carbonate (Calcium Carbonate 750 Mg Tab.Chew) 750 mg PO Q4H PRN PRN Reason: Heartburn Ceftriaxone Sodium (Ceftriaxone Sodium 1 Gm Vial) 1 gm IVPUSH Q24H [facility] Last Admin: 04/09/24 09:19 Dose: 1 gm Documented By: MARLENE Enoxaparin Sodium (Enoxaparin Sodium 40 Mg/0.4 Ml Syringe) 40 mg SUBCUT Q24H [facility] Last Admin: 04/09/24 12:40 Dose: 40 mg Documented By: MARLENE Doxycycline Hyclate 100 mg/ (Sodium Chloride) 250 mls @ 166.67 mls/hr IV Q12H [facility] Last Infusion: 04/09/24 14:50 Dose: Infused Documented By: CAT Ketorolac Tromethamine (Ketorolac Tromethamine 30 Mg/Ml Vial) 30 mg IVPUSH Q6H PRN PRN Reason: Pain, Moderate(Pain Scale 4-6) Stop: 04/13/24 12:40 Last Admin: 04/09/24 09:43 Dose: 30 mg Documented By: MARLENE Magnesium Hydroxide (Milk Of Magnesia 30 Ml Oral.Susp) 30 ml PO DAILY PRN PRN Reason: Constipation Melatonin (Melatonin 3 Mg Tablet) 6 mg PO BEDTIME PRN PRN Reason: Insomnia Ondansetron HCl (Ondansetron Hcl 4 Mg/2 Ml Vial) 4 mg IVPUSH Q8H PRN PRN Reason: Nausea and Vomiting Oxycodone HCl (Oxycodone Hcl Immed Release 5 Mg Tablet) 5 mg PO Q6H PRN PRN Reason: Pain, Severe (Pain Scale 7-10) Last Admin: 04/08/24 21:54 Dose: 5 mg Documented By: BRANDIE Sodium Chloride (0.9 % Sodium Chloride Flush 3 Ml Syringe) 3 ml IVFLUSH [facility] Last Admin: 04/09/24 15:56 Dose: 3 ml Documented By: CAT Labs 04/09/24 06:03 04/09/24 06:03 Labs: Laboratory Results - last 24 hr 04/09/24 06:03 MCV 83.6 MCH 27.2 MCHC 32.5 RDW 13.0 Plt Count 224 MPV 11.0 Absolute Nucleated RBC 0.000 Nucleated RBC % (auto) 0.0 Anion Gap 11 L Estim Creat Clear Calc 157.6 Estimated GFR > 60 Random Glucose 102 Calcium 9.2 Microbiology Microbiology Results: Microbiology 04/08/24 10:13 Blood Culture - Preliminary Blood - Venous No growth after 24 hours. 04/08/24 10:13 Blood Culture - Preliminary Blood - Venous No growth after 24 hours. Assessment and Plan (1) Cellulitis of right lower leg: Status: Acute Plan Pt is a 38-year-old male without any known significant PMH not on home meds and currently without PCP who presents to the ED for evaluation of worsening right lower extremity swelling, redness, and pain. Pt will be admitted to the hospital for treatment and further evaluation of right lower leg cellulitis with sepsis that failed outpatient therapy. sepsis due Right lower extremity cellulitis met sepsis tachycardia and leukocytosis; no severe features. wbc trending down failed outpatient treatment with Keflex continue IV ceftriaxone and doxycycline, started 04/08/2024 Analgesics for pain management Follow up blood cultures Superficial thrombophlebitis of right thigh Pt with palpable cord of inner thigh In the setting of above. improving Hypertension Pt without diagnosis of HTN, not on home meds Has not followed with PCP in some time Possibly secondary to pain Will monitor for now Full Code DVT Prophylaxis: Lovenox Given that pt failed outpatient therapy, he will require a hospitalization of at least two nights for treatment of?right lower extremity cellulitis with sepsis requiring IV antibiotics. Quality Stroke Does the patient have a stroke diagnosis?: No VTE Prior VTE?: No VTE Risk Level:: Medical - moderate - high VTE Device Contraindication: Treatment Not Indicated VTE Drug Contraindication: N/A - Med Ordered
[2024-04-09 22:00] VITALS: BP 147/90; PULSE 66; RESP 18; TEMP 36.8; O2SAT 98
[2024-04-10 05:19] VITALS: BP 135/80; PULSE 57; RESP 16; TEMP 36; O2SAT 97
[2024-04-10 07:44] VITALS: BP 131/69; PULSE 59; RESP 18; TEMP 36.9; O2SAT 96
[2024-04-10] MEDS: 0.9 % Sodium Chloride Flush 3 ML SYRINGE IVFLUSH (07:57)
[2024-04-10] MEDS: cefTRIAXone sodium 1 GM VIAL IVPUSH (09:17)
--- NOTE | 2024-04-10 09:48 | P.DS_ITS ---
DS: Providers Provider Date of Service: 04/10/24 Date of admission: 04/08/24 12:41 Date of discharge: 04/10/24 Primary care physician: None Physician Attending physician on discharge: Bobby Walker Discharging clinician: Katiana Daniels DS: Diagnosis Discharge Diagnosis (1) Cellulitis of right lower leg: Status: Acute DS: Summary Hospital Course Hospital Course: From H&P on the day of admission Pt is a 38-year-old male without any known significant PMH not on home meds and currently without PCP who presents to the ED for evaluation of worsening right lower extremity swelling, redness, and pain. Pt reports symptoms began a few weeks ago on 03/25/2024. The day prior pt reports he was outside doing leaves. The next day pt began experiencing right lower leg pain and swelling. Noticed a line on his inner right thigh that was swollen and red. Denies any known trauma or wound to the area. Initially thought it was a spider bite or he had strained a muscle. No fever or chills at that time. Initially presented to [facility] where he was given a course of cephalexin which he took to completion. While on the antibiotics the pain and swelling decreased, though never fully went away. A few days after finishing the antibiotics pain, swelling, erythema returned and worsened, now migrating to right calf. Pt also has been experiencing difficulty ambulating secondary to pain, as well as subjective fever and chills at home, and some nausea this morning. No weeping or drainage from wound. Denies history of IVDU. Pt at home took ibuprofen with some, though minimal, relief. Denies any vomiting or abdominal pain. No difficulty breathing, SOB, or new cough. Denies chest pain/pressure, palpitations. In the ED pt was tachycardic up to 106 and hypertensive up to 173/106. Labs were significant for leukocytosis of 18.9, and CRP 9.04 but ESR WNL. Stable H&H. No significant electrolyte abnormalities. Renal function baseline. Hepatic function WNL. Lactic acid WNL. Left lower extremity venous duplex negative for DVT but did show 3 cm right inguinal lymph nodes. Pt was treated with ondansetron, morphine, and ceftriaxone. Pt will be admitted to the hospital for treatment and further evaluation of right lower leg cellulitis with sepsis that failed outpatient therapy sepsis due Right lower extremity cellulitis with superficial phlebitis met sepsis tachycardia and leukocytosis; no severe features. wbc trending down failed outpatient treatment with Keflex. treated with IV ceftriaxone and doxycycline, redness, swelling and erythema is improving and white count is trending down. He has remained afebrile and blood cultures are negative at 24 hours. the patient is eager to return home and will be discharged to complete course of po antibiotics. he is strongly encouraged to obtain a PCP Time Attestation Discharge Coordination Time (in mins): 36 Quality: Safe Use of Opioids Does Pt have an Active Cancer Diagnosis on the Problem List?: No Quality: Stroke Does the patient have a stroke diagnosis?: No Physical Exam Vital Signs: Vital Signs: Last Vital Signs Temp 98.5 F 04/10/24 07:44 Pulse 59 04/10/24 07:44 Resp 18 04/10/24 07:44 BP 131/69 04/10/24 07:44 Pulse Ox 96 04/10/24 07:44 O2 Del Method Room Air 04/10/24 07:44 BMI result Body Mass Index 29.2 Const: General: alert, awake and Physically active Nutritional Appearance: average body habitus Orientation/consciousness: patient oriented x3 Resp: Effort & Inspection: normal respiratory effort, able to speak in complete sentences, no respiratory distress and no use of accessory muscles Cardio: Rate: regular rate GI: Inspection: No distended Palpation (GI): Soft to palpation Skin: Other: right lower extremity warm, erythematous, soft; no open woudns b. Neuro: General: patient oriented x3 DS: Data Data Completed and Pending Labs on day of discharge: Preliminary micro results at discharge 04/08/24 10:13 Blood Culture - Preliminary Blood - Venous No growth after 24 hours. 04/08/24 10:13 Blood Culture - Preliminary Blood - Venous No growth after 24 hours. Discharge Plan Discharge Anticipated Discharge Date/Time: 04/10/24 09:55 Patient Disposition: Home, Self-Care Discharge Diagnosis: RLE cellulitis Referrals: Physician,None [Primary Care Provider] - 1 Week Discharge Medications: New cefuroxime axetil 500 mg tablet 500 mg PO Q12H 7 Days Qty: 14 0RF doxycycline monohydrate 100 mg tablet 100 mg PO BID 7 Days Qty: 14 0RF Continued ibuprofen 600 mg tablet 600 mg PO Q6H PRN (Reason: pain) Qty: 30 0RF acetaminophen [Tylenol Extra Strength] 500 mg tablet 1,000 mg PO Q6H PRN (Reason: pain) Qty: 30 0RF Discharge Orders: Discharge Order (Routine); Ordered 04/10/24 Ordered By: Katiana Daniels Activity on Discharge: As tolerated Stand Alone Forms: Patient Portal Discharge page, Work/School Release Print Language: Argentine Care Plan Goals: see below Health Concerns: RLE cellulitis with phlebitis Plan of Treatment: complete course of antibiotics as prescribed keep leg elevated can use warm/cool compresses can use tylenol or NSAIDs for pain control recommend obtaining PCP if symptoms worsen or new symptoms arise return to the ED Assessment: see discharge summary
--- NOTE | 2024-04-10 10:18 | MHC.CM.PN ---
pt dcd home self care
== END 2024-04-10 10:45 | disposition home or self-care (01) | DRG 720 ==
LOC: HO.ED 09:10 → HO.EDOVER 12:52 → HO.S3 04-09 11:24
PROVIDERS: Physician Assistant Medical; Admitting Provider Student in an Organized Health Care Education/Training Program; Emergency Provider Student in an Organized Health Care Education/Training Program; Visit Provider Physician Assistant Medical
DX: A41.9 Sepsis, unspecified organism (principal); I80.01 Phlebitis and thrombophlebitis of superficial vessels of right lower extremity; I10 Essential (primary) hypertension; L03.115 Cellulitis of right lower limb; Z79.899 Other long term (current) drug therapy
CPT/HCPCS: 36415; 80048; 80053; 83605; 85007; 85027; 85652; 86140; 87040; 93971; 99221; 99285; J0696; J1650; J1885; J2270; J2405

== ENCOUNTER → 2024-04-08 09:46 | Outpatient (BNV) | payer BC, SELFPAY | PROVIDERS: Emergency Provider Student in an Organized Health Care Education/Training Program; Visit Provider Radiology Diagnostic Radiology | DX: R22.41 Localized swelling, mass and lump, right lower limb (principal) | CPT/HCPCS: 93971 ==

== ENCOUNTER → 2024-04-08 12:41 | Outpatient (BNV) | payer BC, SELFPAY | PROVIDERS: Admitting Provider Student in an Organized Health Care Education/Training Program; Emergency Provider Student in an Organized Health Care Education/Training Program; Visit Provider Student in an Organized Health Care Education/Training Program | DX: L03.115 Cellulitis of right lower limb (principal) | CPT/HCPCS: 99223; 99232; 99239 ==

== ENCOUNTER 2024-06-10 11:07 | Outpatient (AMB) | payer BC, SELFPAY ==
[2024-06-10 11:10] VITALS: BP 130/100; PULSE 77; TEMP 37.1; O2SAT 98; BMI 34.6
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
[2024-06-10 11:53] VITALS: BP 144/92
== END 2024-06-10 12:21 | disposition home or self-care (01) ==
DX: M79.5 Residual foreign body in soft tissue (principal); L03.115 Cellulitis of right lower limb; R03.0 Elevated blood-pressure reading, without diagnosis of hypertension

== ENCOUNTER → 2024-06-10 11:07 | Outpatient (BNVA) | payer BC, SELFPAY | DX: Z76.89 Persons encountering health services in other specified circumstances (principal); M79.5 Residual foreign body in soft tissue; L03.115 Cellulitis of right lower limb; R03.0 Elevated blood-pressure reading, without diagnosis of hypertension | CPT/HCPCS: 96127 ==

== ENCOUNTER 2024-06-16 15:46 | Outpatient (REF) | payer BC, SELFPAY ==
--- NOTE | ~2024-06-16 | US_ITS ---
CLINICAL HISTORY: R60.0 - Localized edema Venous duplex ultrasound right lower extremity Comparison: US/SR - US VENOUS DUPLEX LE RT - 04/08/24 10:35 EST Findings: The visualized deep veins are fully compressible with normal Doppler color flow and spectral tracings. No popliteal cyst. IMPRESSION: 1. Negative for right lower extremity deep vein thrombosis. This document has been electronically signed by: Guillermo Cormier MD on 06/16/2024 16:31:39
== END 2024-06-16 15:47 | disposition home or self-care (01) ==
LOC: HO.US 15:46
DX: R60.0 Localized edema (principal); M79.604 Pain in right leg
CPT/HCPCS: 93971

== ENCOUNTER → 2024-06-16 15:48 | Outpatient (BNV) | payer BC, SELFPAY | PROVIDERS: Visit Provider Nuclear Medicine | DX: R60.0 Localized edema (principal) | CPT/HCPCS: 93971 ==

== ENCOUNTER 2024-07-09 14:49 | Outpatient (AMB) | payer BC, SELFPAY ==
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
[2024-07-09 14:59] VITALS: BP 173/107; PULSE 85; BMI 35.0
== END 2024-07-09 15:44 | disposition home or self-care (01) ==
LOC: HO.HGS 14:49
PROVIDERS: Visit Provider Surgery
DX: L03.115 Cellulitis of right lower limb (principal); S91.331S Puncture wound without foreign body, right foot, sequela
CPT/HCPCS: 99204

== ENCOUNTER → 2024-07-09 14:49 | Outpatient (BNVA) | payer BC, SELFPAY | PROVIDERS: Visit Provider Surgery ==

== ENCOUNTER 2024-07-22 08:31 | Outpatient (AMB) | payer BC, SELFPAY ==
--- NOTE | 2024-07-22 08:33 | A.OFFPC_ITS ---
Vital Signs 07/22/24 08:49 Height 5 ft 11 in Weight 241 lb 12.8 oz BMI 33.7 BP 136/94 H Blood Pressure Location Lt brachial Position Sitting Respiration 16 Pulse 77 Pulse Source Pulse Oximeter Temp 98.8 F Temp Source Oral Pulse Oximetry (%) 98 Oxygen Delivery Method Room Air Intake Visit Reasons: 6 Week F/U Allergies cat dand Allergy (Mild, Uncoded 07/22/24 08:59) Itchy Eyes Medication List - Last Reconciled 07/22/24 by [place] Perez No Known Home Meds Tobacco use date assessed: 07/22/24 Dental Screening Dental Screen Date: 07/22/24 Did you have a dental visit in the last 12 months?: No Did you have a dental problem in the last 6 months where you did not have access to dental care?: No Was dental information given to patient?: No HPI 6 Week F/U HPI Details The patient is a 38-year-old male presenting with a follow-up concern for essential hypertension management. He has consistently high blood pressure readings, notably reaching values such as 136/94 mmHg today , despite attempts to modify his diet by reducing bread and juice consumption. He previously did not adhere to his antihypertensive medication regimen due to a preference for non-pharmacological interventions and lifestyle changes. He manages occupational and familial stress, which he acknowledges may exacerbate his hypertension. He experiences lower extremity swelling, likely exacerbated by his work environment, which requires prolonged standing. Upon advice, he has started using compression stockings with some reported benefit. He expressed concerns about the intake of water, and he was reassured about the benefits of hydration in the context of his health profile. The patient understands the risks associated with uncontrolled hypertension, including the potential for strokes, and intends to incorporate medication into his blood pressure management strategy moving forward. He plans to follow up to assess the effectiveness of medication alongside lifestyle modifications. Amlodipine 5 mg was ordered on previous visit. Medication was not picked up on pharmacy and most likely we will need to be recent, as a patient this is a green to start medication. [facility] Medical History Residual foreign body in soft tissue Personal history of other (healed) physical injury and trauma No known health problems No known health problems Surgical History No pertinent past surgical history Family History Father Cancer Mother Diabetes Alzheimer dementia Daughter No problems noted. Daughter No problems noted. Son No problems noted. 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 Cognitive needs: No Hearing needs: No Vision needs: No Questionnaire Thrive Questionnaire Date Thrive assessed: 07/22/24 I am a: Patient What is your living situation today?: I have a steady place to live Within the past 12 months, did the food you bought not last and you didn't have the money to get more?: Sometimes True Within the past 12 months, did you worry whether your food would run out before you got money to buy more?: Sometimes True Do you have trouble paying for medicines?: No Do you have trouble getting transportation to medical appointments?: No Do you have trouble paying your heating and electricity bill?: I choose not to answer this question Do you have trouble taking care of your child, family member or friend?: No Do you have trouble with day-to-day activities such as bathing, preparing meals, shopping, managing finances, etc.?: No Are you currently unemployed and looking for a job?: No Are you interested in more education?: I choose not to answer this question Please select the resources that you would like help with: None Currently or been in a relationship where the following occur: No concerns reported THRIVE Score: 2 AUDIT C Alcohol Use Questionnaire (AUDIT-C) 1. How often do you have a drink containing alcohol?: Monthly or less 2. How many drinks containing alcohol do you have on a typical day when you are drinking?: 1 or 2 3. How often do you have six or more drinks on one occasion?: Never Total Score: 1 Score Reviewed/Action Taken: No AMADOU-7 AMB Questionnaire AMADOU-7 Date AMADOU - 7 assessed: 06/10/24 Source: Developed by Drs. Agustin Damian, Kiah Antonio, Eduardo tapia nd colleagues, with an educational beena from [employer]. Review of Systems Const Denies headache(s) Eyes Denies loss of vision ENT Denies vertigo, Denies dizziness, Denies headache(s) and Denies sore throat Card Denies chest pain, Denies leg edema and Denies lightheadedness Resp Denies cough and Denies hemoptysis Musc Denies arthralgias, Denies joint swelling, Denies numbness, Denies tingling and Reports other (Right lower leg intermittently swells ) Neuro Denies Abnormal speech present, Denies vertigo, Denies dizziness, Denies headache(s), Denies loss of vision, Denies numbness and Denies tingling Physical exam (Primary Care) Vital Signs: Last Vital Signs Temp 98.8 F 07/22/24 08:49 Pulse 77 07/22/24 08:49 Resp 16 07/22/24 08:49 BP 136/94 H 07/22/24 08:49 Pulse Ox 98 07/22/24 08:49 Oxygen Delivery Method Room Air 07/22/24 08:49 BMI result Body Mass Index 33.7 Tobacco/Smoking Status: Tobacco use Status Tobacco use date assessed 07/22/24 07/22/24 08:56 Patient Tobacco Use Status Never used Tobacco 07/22/24 08:56 e-Cigarette/Vaping Use Never Used 07/22/24 08:56 Thrive Assessment: Date of Thrive Assessment Date Thrive assessed 07/22/24 07/22/24 08:56 Currently or been in a relationship where the following occur: No concerns reported Const General: healthy appearing, no acute distress, alert and awake Nutritional Appearance: well nourished Orientation/consciousness: oriented to person, oriented to place and oriented to time HENMT Ears: external ears normal General nose exam: Normal external nose present Eyes Conjunctivae: conjunctivae normal Sclerae: sclerae normal Pupils: Equal, round and reactive pupils present Resp Effort & Inspection: normal respiratory effort and not tachypneic Auscultation: no crackles, no rales, no rhonchi and no wheezes Cardio Rate: regular rate Rhythm: regular rhythm Heart sounds: no murmurs and normal S1 and S2 Skin General skin exam: no rashes or lesions noted and dry skin Neuro General: oriented to person, oriented to place and oriented to time Cranial nerves: Yes Equal, round and reactive pupils present Speech: No Abnormal speech present Gait exam (Neuro): Normal gait present Extrem Right upper extremity: full ROM Left upper extremity: full ROM Right lower extremity: full ROM; no edema Left lower extremity: full ROM; no edema Psych Mental Status: mental status grossly normal Speech and movement: Normal speech and movement present Affect: normal affect Attitude: cooperative Thought process: Normal thought process present Coding Level of Care Code Est Pt Level 3 (32634) Diagnoses Elevated blood pressure reading R03.0 Leg edema, right R60.0 Time Spent (min) 29 Assessment & Plan Assessment & Plan (1) Elevated blood pressure reading: Code(s): R03.0 - Elevated blood-pressure reading, without diagnosis of hypertension Category: Medical (2) Leg edema, right: Code(s): R60.0 - Localized edema Category: Medical Plan I have recommended that the patient resume adherence to his antihypertensive medication while continuing dietary changes to manage his essential hyper tension. Emphasis was placed on balancing pharmacological treatment with lifestyle modifications such as sodium reduction and increased hydration. The patient should monitor blood pressure and swelling in the lower extremities, utilizing compression stockings consistently. A follow-up appointment in six weeks will be scheduled to assess the response to the current management plan and make necessary adjustments. Patient was informed and verbally consented to the use of an ambient scribe for clinic note documentation during this visit. Medications: New amlodipine 5 mg PO DAILY 90 tabs 2RF Patient Instructions: - Start taking your antihypertensive medication as prescribed. - Continue reducing your intake of salt and try healthier alternatives like black pepper. - Stay hydrated by drinking plenty of water. - Use compression stockings to manage leg swelling from standing. - Return to the clinic in five weeks to check on blood pressure and treatment effects.
[2024-07-22 08:49] VITALS: BP 136/94; PULSE 77; RESP 16; TEMP 37.1; O2SAT 98; BMI 33.7
== END 2024-07-22 09:22 | disposition home or self-care (01) ==
LOC: HO.HMCH 08:32
DX: R03.0 Elevated blood-pressure reading, without diagnosis of hypertension (principal); R60.0 Localized edema

== ENCOUNTER 2025-03-15 15:54 | Outpatient (AMB) | payer BC, SELFPAY ==
[2025-03-15 16:07] VITALS: BP 160/118; PULSE 89; RESP 18; O2SAT 96; BMI 34.2
--- NOTE | 2025-03-15 16:07 | A.OFFPC_ITS ---
Vital Signs 03/15/25 16:07 03/15/25 16:39 Height 5 ft 11 in Weight 245 lb 4 oz BMI 34.2 BP 160/118 H 150/102 H Blood Pressure Location Lt brachial Lt brachial Position Sitting Sitting Respiration 18 Pulse 89 Pulse Source Pulse Oximeter Temp Source Temporal Artery Scan Pulse Oximetry (%) 96 Oxygen Delivery Method Room Air Intake Visit Reasons: 6 week check up Latent Fingerprint Examiner Required: No Accompanied by: Self / Same As Patient Allergies cat dand Allergy (Mild, Uncoded 03/15/25 16:29) Itchy Eyes Medication List - Last Reconciled 03/15/25 by [place] Perez amlodipine 5 mg PO DAILY Tobacco use date assessed: 03/15/25 Dental Screening Dental Screen Date: 03/15/25 Did you have a dental visit in the last 12 months?: No Did you have a dental problem in the last 6 months where you did not have access to dental care?: No Was dental information given to patient?: Patient has dentist HPI HPI Comments History of Present Illness Details History of Present Illness The patient is a 39-year-old male presenting for follow-up to address several health concerns, including elevated blood pressure and increased nighttime urination. He reports significant current stress due to visiting family and work obligations. The patient has a history of elevated blood pressure readings in the clinic, which he attributes to eating and smoking before his appointments. He has a home blood pressure cuff but does not check his blood pressure at home. He reports a family history of hypertension and diabetes. The patient is hesitant to start medications due to a fear of side effects. The patient also reports experiencing nocturia for the past couple of weeks, with urination occurring every 1.5 to 2 hours at night when he is home and trying to sleep. He notes that this does not occur while he is at work. He consumes a lot of water and tea late at night. He has gained weight, from 233 pounds to 244 pounds, which he attributes to being more sedentary while at home on leave from work. Health Maintenance The patient has pending fasting labs to assess his cholesterol and glucose levels. He was reminded to get these labs completed. 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 - Substance Use: Smokes cigarettes, incl uding before medical appointments. - Diet: Reports he does not use a lot of salt in his cooking. - Level of Activity: Reports being more sedentary recently while being home from work, contributing to weight gain. - Stress: The patient reports high level s of stress from family visiting and work. Results - Vitals: In-office blood pressure was 1 60/118 mmHg initially, and 150/102 mmHg on repeat measurement. [facility] Medical History Residual foreign body in soft tissue Personal history of other (healed) physical injury and trauma No known health problems No known health problems Surgical History No pertinent past surgical history Family History Father Cancer Mother Diabetes Alzheimer dementia Daughter No problems noted. Daughter No problems noted. Son No problems noted. 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 Cognitive needs: No Hearing needs: No Vision needs: No Questionnaire Thrive Questionnaire Date Thrive assessed: 03/15/25 I am a: Patient What is your living situation today?: I have a steady place to live Within the past 12 months, did the food you bought not last and you didn't have the money to get more?: Sometimes True Within the past 12 months, did you worry whether your food would run out before you got money to buy more?: Sometimes True Do you have trouble paying for medicines?: No Do you have trouble getting transportation to medical appointments?: No Do you have trouble paying your heating and electricity bill?: I choose not to answer this question Do you have trouble taking care of your child, family member or friend?: No Do you have trouble with day-to-day activities such as bathing, preparing meals, shopping, managing finances, etc.?: No Are you currently unemployed and looking for a job?: No Are you interested in more education?: I choose not to answer this question Currently or been in a relationship where the following occur: No concerns reported THRIVE Score: 2 AMADOU-7 AMB Questionnaire AMADOU-7 Date AMADOU - 7 assessed: 06/10/24 Source: Developed by Drs. Agustin Damian, Kiah Antonio, Eduardo Wilcox and colleagues, with an educational beena from [employer]. Review of Systems Narrative Review of Systems - General: Reports an 11-pound weight gain. - Genitourinary: Reports nocturia, urinating every 1.5-2 hours at night for the past few weeks. - Psychological: Reports feeling stressed. Const Denies headache(s) Eyes Denies loss of vision ENT Denies vertigo, Denies dizziness, Denies headache(s) and Denies sore throat Card Denies chest pain, Denies leg edema and Denies lightheadedness Resp Denies cough and Denies hemoptysis Reports nocturia Musc Denies arthralgias, Denies joint swelling, Denies numbness, Denies tingling and Reports other (Right lower leg intermittently swells ) Neuro Denies Abnormal speech present, Denies vertigo, Denies dizziness, Denies headache(s), Denies loss of vision, Denies numbness and Denies tingling Psych Reports other (Increased stress) Physical exam (Primary Care) Vital Signs: Last Vital Signs Pulse 89 03/15/25 16:07 Resp 18 03/15/25 16:07 BP 150/102 H 03/15/25 16:39 Pulse Ox 96 03/15/25 16:07 Oxygen Delivery Method Room Air 03/15/25 16:07 BMI result Body Mass Index 34.2 Tobacco/Smoking Status: Tobacco use Status Tobacco use date assessed 03/15/25 03/15/25 16:15 Patient Tobacco Use Status Never used Tobacco 03/15/25 16:15 e-Cigarette/Vaping Use Never Used 03/15/25 16:15 Thrive Assessment: Date of Thrive Assessment Date Thrive assessed 03/15/25 03/15/25 16:15 Currently or been in a relationship where the following occur: No concerns reported Narrative Physical Exam - Vitals: Blood pressure was initially 160/118 mmHg. - Vitals: Repeat blood pressure after a period of rest was 150/102 mmHg. - Respiratory: Lungs are clear to auscultation bilaterally. Const General: healthy appearing, no acute distress, alert and awake Nutritional Appearance: well nourished Orientation/consciousness: oriented to person, oriented to place and oriented to time HENMT Ears: external ears normal General nose exam: Normal external nose present Eyes Conjunctivae: conjunctivae normal Sclerae: sclerae normal Pupils: Equal, round and reactive pupils present Resp Effort & Inspection: normal respiratory effort and not tachypneic Auscultation: no crackles, no rales, no rhonchi and no wheezes Cardio Rate: regular rate Rhythm: regular rhythm Heart sounds: S1 normal heart sound present, S2 normal heart sound present, no murmurs and normal S1 and S2 GI Palpation (GI): Soft to palpation, nontender and No hepatosplenomegaly present Auscultation: normal bowel sounds General: Yes no CVA tenderness Back/Spine/Pelvis Back: no CVA tenderness Skin General skin exam: no rashes or lesions noted and dry skin Neuro General: oriented to person, oriented to place and oriented to time Cranial nerves: Yes Equal, round and reactive pupils present Speech: No Abnormal speech present Gait exam (Neuro): Normal gait present Extrem Right upper extremity: full ROM Left upper extremity: full ROM Right lower extremity: full ROM; no edema Left lower extremity: full ROM; no edema Psych Mental Status: mental status grossly normal Speech and movement: Normal speech and movement present Affect: normal affect Attitude: cooperative Thought process: Normal thought process present Coding Level of Care Code Est Pt Level 3 (23330) Diagnoses Hypertension, unspecified type I10 Hypertension type: unspecified Nocturia R35.1 Time Spent (min) 34 Assessment & Plan Assessment & Plan (1) HTN (hypertension): Code(s): I10 - Essential (primary) hypertension Category: Medical Qualifiers: Hypertension type: unspecified Qualified Code(s): I10 - Essential (primary) hypertension (2) Nocturia: Code(s): R35.1 - Nocturia Category: Medical Plan Plan Patient was informed and verbally consented to the use of an ambient scribe for clinic note documentation during this visit. 1. Hypertension The patient presented with significantly elevated blood pressure readings of 160/118 mmHg and 150/102 mmHg. He associates these high readings with per-visit factors like eating and smoking, but also has a strong family history of hypertension. The patient expressed significant apprehension about starting medication due to fear of side effects. Extensive counseling was provided on the risks of untreated hypertension, including heart failure, kidney damage, heart attack, and stroke, versus the manageable risks of medication. The plan is for the patient to begin home blood pressure monitoring and maintain a log. A follow-up nurse visit is scheduled for next Saturday to review the log and re-evaluate his blood pressure. The patient was instructed to bring his home blood pressure cuff to the appointment to check its accuracy. 2. Nocturia The patient reports increased urinary frequency at night for the past few weeks, which is likely related to his habit of drinking a lot of fluids before bed. To rule out other underlying causes, a urinalysis has been ordered. Discussion Notes I discussed the patient's severely elevated blood pressure readings of 160/118 mmHg, which decreased slightly to 150/102 mmHg after rest. I explained the serious long-term risks associated with untreated hypertension, including heart failure, kidney disease, heart attack, and stroke. The patient expressed significant fear of medication side effects, which we addressed by comparing the substantial risks of his current condition to the much lower, manageable risks of medication, nothing that not all patients experience side effects and alternatives are available. We agreed on a plan for him to monitor his blood pressure at home and maintain a log to get a more accurate picture of his typical readings. I scheduled a nurse visit for next Saturday to review his log and check the accuracy of his home device. Regarding his nocturia, I explained it is likely due to his high fluid intake before bed, but we will perform a urinalysis to be certain. I also reminded him to complete his pending fasting labs. Patient Instructions - Check your blood pressure at home every day and write the numbers down in a log. - Come back to the clinic next Saturday for a follow-up visit with the nurse. - Please bring your blood pressure log and your home blood pressure machine with you to the next visit. - Go to the laboratory to have your blood and urine tests done. - Remember that you need to fast (not eat or drink anything except water) before your blood test. - Your blood pressure is very high. It is important to get it under control to prevent serious health problems in the future, like a heart attack, stroke, or kidney failure.
[2025-03-15 16:39] VITALS: BP 150/102
== END 2025-03-15 16:57 | disposition home or self-care (01) ==
LOC: HO.HMCH 15:55
DX: I10 Essential (primary) hypertension (principal); R35.1 Nocturia